=== PATIENT | female | born 1990 | race Caucasian/White ===

== ENCOUNTER 2019-02-27 12:45 | Inpatient (IN) | payer MEDICAID ==
[~2019-02-27 12:45] MED LIST: EPHEDrine 25 MG/5 ML SYG; OXYTOCIN 30 UNITS/LR 500 ML BAG IV; PHENYLephrine (100 MCG/ML) 10ML SYG
[2019-02-27 15:50] LABS: ADD MAN DIFF? NO
[2019-02-27 15:54] LABS: BASOPHIL # 0.1 10^3/ul (0.0-0.1); BASOPHILS % 0.6 % (0.0-2.0); EOSINOPHILS # 0.1 10^3/ul (0.0-0.5); EOSINOPHILS % 1.2 % (0.0-7.0); HEMATOCRIT 38.9 % (37.0-47.0); HEMOGLOBIN 12.9 g/dl (12.0-16.0); LYMPHOCYTES # 1.8 10^3/ul (0.8-2.9); LYMPHOCYTES % 18.5 % (15.0-51.0); MEAN CORPUSCULAR HGB CONC 33.2 g/dl (32.0-37.0); MEAN CORPUSCULAR VOLUME 93.5 fl (82.0-101.0); MEAN PLATELET VOLUME 12.4 fl (7.4-10.4); MONOCYTE # 0.7 10^3/ul (0.3-0.9); MONOCYTES % 6.9 % (0.0-11.0); NEUTROPHIL # 6.9 10^3/ul (1.6-7.5); NEUTROPHILS % 72.2 % (39.0-77.0); PLATELET COUNT 155 10^3/UL (140-415); RED BLOOD COUNT 4.16 10^6/ul (4.20-5.40); RED CELL DISTRIBUTION WIDTH 13.7 % (11.5-14.5)
[2019-02-27 15:54] LABS: WHITE BLOOD COUNT 9.6 10^3/ul (4.8-10.8)
[2019-02-27] MEDS ORDERED: CARBOPROST 250 MCG INJ IM ×2 (16:00→20:00)
[2019-02-27] MEDS ORDERED: MISOPROSTOL 200 MCG TAB PR ×2 (16:00→20:00)
[2019-02-27] MEDS ORDERED: METHYLERGONOVINE 0.2 MG INJ IM ×2 (16:00→20:00)
[2019-02-27] MEDS ORDERED: OXYTOCIN 30 UNITS/LR 500 ML IV ×2 (16:00→20:00)
[2019-02-27 16:14] LABS: INR 0.85; PROTIME 11.7 Sec (11.9-14.9); PT RATIO 0.9
[2019-02-27 16:15] LABS: PARTIAL THROMBOPLASTIN TIME 27.5 Sec (23.0-35.0)
[2019-02-27] MEDS: LACTATED RINGER'S 1,000 ML IV ×3 (16:36→19:48)
[2019-02-27] MEDS ORDERED: morphine SULFATE/PF (10 MG/10 ML) INJ (18:03)
[2019-02-27] MEDS ORDERED: ONDANSETRON 4 MG INJ (18:25)
[2019-02-27] MEDS ORDERED: METOCLOPRAMIDE 10 MG INJ (18:26)
[2019-02-27] MEDS: OXYTOCIN 30 UNITS/LR 500 ML IV ×2 (19:23→23:41)
[2019-02-27] MEDS ORDERED: NALOXONE (0.4 MG/ML) INJ IV ×2 (19:30→22:30)
[2019-02-27] MEDS ORDERED: ONDANSETRON 4 MG INJ IV ×4 (19:30→22:30)
[2019-02-27] MEDS ORDERED: METOCLOPRAMIDE 10 MG INJ IV ×2 (19:30→22:30)
[2019-02-27] MEDS ORDERED: ALBUTEROL 0.083% (NEB) 2.5 MG/3 ML AMP HHN (19:30)
[2019-02-27] MEDS ORDERED: DIPHENHYDRAMINE 50 MG INJ IV ×4 (19:30→22:30)
[2019-02-27] MEDS ORDERED: FENTAnyl 50 MCG/ML VIAL IV ×6 (19:30→22:30)
[2019-02-27] MEDS ORDERED: HYDROmorphONE 1 MG/5 ML IV SYRINGE IV ×6 (19:30→22:30)
[2019-02-27] MEDS ORDERED: HYDROmorphONE 0.5 MG/0.5 ML SYG IV ×4 (19:30→22:30)
[2019-02-27] MEDS: AZITHROMYCIN 500MG/NS (PMX) 250 ML IVPB (19:49)
[2019-02-27] MEDS: CEFAZOLIN 2 GM/50 ML (PMX) 50 ML IVPB (19:50)
[2019-02-27] MEDS ORDERED: LANOLIN HPA 1 PKT TOP (20:00)
[2019-02-27] MEDS ORDERED: OXYCODONE/ACETAMINOPHEN (5/325) TAB PO (20:00)
[2019-02-27] MEDS: KETOROLAC 30 MG INJ IV (20:54)
[2019-02-27] MEDS: SENNA/DOCUSATE NA (8.6MG/50MG) TAB PO (21:00)
[2019-02-27] MEDS ORDERED: KETOROLAC 30 MG INJ IV ×2 (22:30)
[2019-02-27 22:37] LABS: HEPATITIS B SURFACE ANTIGEN NEGATIVE (NEGATIVE)
[2019-02-27 22:38] LABS: HEPATITIS B SURFACE ANTIGEN NEGATIVE (NEGATIVE)
[2019-02-28] MEDS: KETOROLAC 30 MG INJ IV ×3 (06:12→16:48)
[2019-02-28 07:46] LABS: ADD MAN DIFF? NO
[2019-02-28 07:52] LABS: WHITE BLOOD COUNT 8.1 10^3/ul (4.8-10.8)
[2019-02-28 07:52] LABS: BASOPHILS % 0.4 % (0.0-2.0); EOSINOPHILS # 0.1 10^3/ul (0.0-0.5); EOSINOPHILS % 0.9 % (0.0-7.0); HEMOGLOBIN 11.5 g/dl (12.0-16.0); LYMPHOCYTES # 1.1 10^3/ul (0.8-2.9); LYMPHOCYTES % 13.8 % (15.0-51.0); MEAN CORPUSCULAR HEMOGLOBIN 31.2 pg (29.0-33.0); MEAN CORPUSCULAR HGB CONC 32.9 g/dl (32.0-37.0); MEAN CORPUSCULAR VOLUME 94.9 fl (82.0-101.0); MEAN PLATELET VOLUME 12.8 fl (7.4-10.4); MONOCYTE # 0.7 10^3/ul (0.3-0.9); NEUTROPHIL # 6.1 10^3/ul (1.6-7.5); NEUTROPHILS % 75.3 % (39.0-77.0); PLATELET COUNT 135 10^3/UL (140-415); RED BLOOD COUNT 3.69 10^6/ul (4.20-5.40); RED CELL DISTRIBUTION WIDTH 13.7 % (11.5-14.5)
[2019-02-28] MEDS: LACTATED RINGER'S 1,000 ML IV (09:46)
[2019-02-28] MEDS: SENNA/DOCUSATE NA (8.6MG/50MG) TAB PO ×2 (10:17→21:10)
[2019-02-28 15:49] LABS: RAPID PLASMA REAGIN NONREACTIVE (NR)
[2019-02-28] MEDS: IBUPROFEN 800 MG TAB PO (21:51)
[2019-03-01] MEDS: OXYCODONE/ACETAMINOPHEN (5/325) TAB PO ×4 (02:33→20:27)
[2019-03-01] MEDS: IBUPROFEN 800 MG TAB PO ×3 (05:55→22:16)
[2019-03-01] MEDS: SENNA/DOCUSATE NA (8.6MG/50MG) TAB PO ×2 (09:13→20:27)
[2019-03-02] MEDS: IBUPROFEN 800 MG TAB PO ×2 (06:06→13:25)
[2019-03-02] MEDS: DIPHTH/TET/ACEL PERTUSS (ADULT) 0.5 ML VIAL IM* (08:51)
[2019-03-02] MEDS: SENNA/DOCUSATE NA (8.6MG/50MG) TAB PO (08:51)
[2019-03-02] MEDS: OXYCODONE/ACETAMINOPHEN (5/325) TAB PO (10:58)
== END 2019-03-02 13:55 | disposition home or self-care (01) | DRG 788 ==
LOC: OBT 12:45 → L-D 12:45 → OBT 13:20 → L-D 13:35 → PP1 21:45
PROVIDERS: Obstetrics & Gynecology
PROC: 10D00Z1 Extraction of Products of Conception, Low, Open Approach (ICD-10-PCS; principal; 2019-02-27 18:30)
DX: O65.5 Obstructed labor due to abnormality of maternal pelvic organs (principal); O34.211 Maternal care for low transverse scar from previous cesarean delivery; N73.6 Female pelvic peritoneal adhesions (postinfective); Z3A.37 37 weeks gestation of pregnancy; Z37.0 Single live birth
CPT/HCPCS: 85025; 85610; 85730; 86592; 86850; 86900; 86901; 87340; 99464